=== PATIENT | female | born 1940 | race Caucasian/White ===

== ENCOUNTER → 2021-09-25 | Outpatient (CLI) | payer MEDICARE, BC | LOC: RAD 08:24 → MAMMO 08:30 | DX: Z78.0 Asymptomatic menopausal state (principal); M85.80 Other specified disorders of bone density and structure, unspecified site ==

== ENCOUNTER → 2022-09-05 | Outpatient (CLI) | payer MEDICARE, BC | LOC: VAS 09:43 → RAD 10:00 | DX: I67.2 Cerebral atherosclerosis (principal) ==